=== PATIENT | female | born 2000 | race Caucasian/White ===

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

== ENCOUNTER 2022-07-15 06:13 | Emergency (ER) | payer OTHER ==
[~2022-07-15] VITALS: Ht 167.6 cm; Wt 51.8 kg
[2022-07-15] VITALS (8 sets, daily range): BP systolic 75–138; BP diastolic 53–120
== END 2022-07-15 08:10 | disposition home or self-care (01) | DRG 556 ==
LOC: ED 06:13
DX: M79.671 Pain in right foot (principal)